=== PATIENT | female | born 1995 | race Caucasian/White ===

== ENCOUNTER 2021-04-24 19:45 | Observation (INO) | payer MEDICAID ==
[~2021-04-24] VITALS: Ht 165.1 cm; Wt 82.1 kg
[2021-04-24] MEDS ORDERED: PNV91TAB8 PO (20:02)
[2021-04-24] MEDS ORDERED: MAGN200T5 PO (20:03)
[2021-04-24] MEDS ORDERED: [UNRECOGNIZED DRUG - CODE] PO (20:13)
[2021-04-24] MEDS ORDERED: FERR-212 PO (20:15)
== END 2021-04-24 21:13 | disposition home or self-care (01) ==
LOC: MLD 19:45
PROVIDERS: ADMIT Obstetrics & Gynecology; ATTEND Obstetrics & Gynecology
DX: O36.8130 Decreased fetal movements, third trimester, not applicable or unspecified (principal); Z3A.39 39 weeks gestation of pregnancy
CPT/HCPCS: G0378

== ENCOUNTER 2021-05-02 12:09 | Inpatient (IN) | payer MEDICAID ==
[~2021-05-02] VITALS: Ht 165.1 cm; Wt 82.1 kg
[~2021-05-02 12:09] MED LIST: FERR-212 PO; MAGN200T5 PO; PNV91TAB8 PO; [UNRECOGNIZED DRUG - CODE] PO
[2021-05-02] MEDS ORDERED: METHYLERGONOVINE 0.2 MG/ML AMP IM PRN (14:10)
[2021-05-02] MEDS ORDERED: PRETAB PO (14:10)
[2021-05-02] MEDS ORDERED: CARBOPROST 250 MCG/ML AMP IM PRN (14:10)
--- NOTE | 2021-05-02 15:02 | NUR ---
PATIENT HAS BEEN SCREENED AND CATEGORIZED LOW NUTRITION RISK. PATIENT WILL BE SEEN WITHIN 7 DAYS OF ADMISSION. 05/09/[address]
[2021-05-02 15:06] LABS: BASOPHILS % (AUTO) 0.2 % (0.0-2.0); EOSINOPHILS # (AUTO) 0.1 K/uL (0-0.4); EOSINOPHILS % (AUTO) 0.7 % (0.0-4.0); HEMATOCRIT 37.3 % (36-48); HEMOGLOBIN 12.5 g/dL (12.0-16.0); LYMPHOCYTES # (AUTO) 1.7 K/uL (2.5-16.5); LYMPHOCYTES % (AUTO) 17.5 % (20.5-51.1); MEAN CORPUSCULAR HEMOGLOBIN 30 pg (27-31); MEAN CORPUSCULAR HGB CONC 34 g/dL (33-37); MEAN CORPUSCULAR VOLUME 88.3 fL (80-94); MONOCYTES # (AUTO) 0.8 K/uL (0.8-1.0); MONOCYTES % (AUTO) 8.1 % (1.7-9.3); NEUTROPHILS # (AUTO) 7.3 K/uL (1.8-7.7); NEUTROPHILS % (AUTO) 73.5 % (42.2-75.2); PLATELET COUNT (AUTO) 209 K/uL (140-450); RED BLOOD CELL COUNT(AUTO) 4.22 MIL/uL (4.20-5.40); RED CELL DISTRIBUTION WIDTH 13.7 % (11.6-13.7); WHITE BLOOD COUNT (AUTO) 9.9 K/uL (4.8-10.8)
[2021-05-02 15:17] LABS: BILIRUBIN,URINE NEGATIVE (NEGATIVE); BLOOD, URINE NEGATIVE (NEGATIVE); COLOR,URINE YELLOW (YELLOW); LEUKOCYTE ESTERASE ,URINE 1+ (NEGATIVE); NITRITE, URINE NEGATIVE (NEGATIVE); PH,URINE 6.5 (5.0-9.0); UGLUCOSE NEGATIVE (NEGATIVE)
[2021-05-02 15:24] LABS: ALBUMIN 2.8 g/dL (3.4-5.0); ANION GAP 16.9 (8-16); CARBON DIOXIDE 22.3 mmol/L (21-32); CREATININE 0.8 mg/dL (0.6-1.3); POTASSIUM 4.2 mmol/L (3.5-5.1); TOTAL BILIRUBIN 0.3 mg/dL (0.0-1.0)
[2021-05-02 15:37] LABS: APPEARANCE,URINE HAZY (CLEAR)
[2021-05-02 15:51] LABS: RBC,URINE 0-5 /HPF (0-5)
[2021-05-02] MEDS ORDERED: MISOPROSTOL 25 MCG TAB VG SCH (16:00)
[2021-05-02] MEDS: LACTATED RINGERS 1,000 ML IV SCH ×2 (16:28→22:12)
[2021-05-02 17:10] VITALS: BP 114/67
[2021-05-03] MEDS ORDERED: NALBUPHINE 10 MG/ML AMP IVP PRN (06:25)
[2021-05-03] MEDS ORDERED: NALBUPHINE 10 MG/ML AMP ONE (06:33)
[2021-05-03] MEDS ORDERED: ROPIVACAINE 0.2%/NS PREMIX 200 ML EPI ONE (12:15)
[2021-05-03] MEDS ORDERED: fentaNYL citrate 0.05 MG/ML VIAL ONE (12:15)
[2021-05-03] MEDS ORDERED: OXYTOCIN 20 UNITS/LR PREMIX 1,000 ML IV ONE (12:49)
[2021-05-03] MEDS ORDERED: LIDOCAINE 1% 500 MG/50 ML VIAL ONE (19:17)
[2021-05-03] MEDS ORDERED: ONDANSETRON 4 MG/2 ML VIAL ONE (22:06)
[2021-05-03] MEDS ORDERED: MORPHINE PRES FREE 10 MG/10 ML AMP IV ONE (23:00)
[2021-05-03] MEDS ORDERED: ceFAZolin 1,000 MG VIAL ONE (23:02)
[2021-05-03] MEDS ORDERED: LIDOCAINE 2% 100 MG/5 ML SYR IVP ONE ×2 (23:14→23:18)
[2021-05-03] MEDS: LACTATED RINGERS 1,000 ML IV SCH (23:18)
[2021-05-03] MEDS ORDERED: LIDOCAINE MPF 2% 100 MG/5 ML VIAL INJ ONE (23:22)
[2021-05-03] MEDS ORDERED: LIDOCAINE 2% 1000 MG/50 ML VIAL INJ ONE ×2 (23:27)
[2021-05-03] MEDS ORDERED: KETAMINE 500 MG/5 ML VIAL ONE (23:30)
[2021-05-04] MEDS ORDERED: OXYTOCIN 20 UNITS in LACTATED RINGERS 1,000 ML IV SCH ×2 (00:20→00:30)
[2021-05-04] MEDS ORDERED: LACTATED RINGERS 1,000 ML IV SCH (00:20)
[2021-05-04] MEDS ORDERED: ONDANSETRON 4 MG/2 ML VIAL IVP PRN ×3 (00:20→00:30)
[2021-05-04] MEDS ORDERED: diphenhydrAMINE 50 MG/ML VIAL IVP PRN ×2 (00:20)
[2021-05-04] MEDS ORDERED: MEPERIDINE 25 MG/ML SYR IVP PRN (00:20)
[2021-05-04] MEDS ORDERED: NALOXONE 0.4 MG/ML VIAL IVP PRN ×3 (00:20)
[2021-05-04] MEDS ORDERED: LIDOCAINE MPF 2% 100 MG/5 ML VIAL INJ ONE ×3 (00:23)
[2021-05-04] MEDS ORDERED: OXYTOCIN 10 UNITS/ML VIAL ONE ×2 (00:23→00:24)
[2021-05-04] MEDS ORDERED: METOCLOPRAMIDE 10 MG/2 ML INJ VIAL ONE (00:24)
[2021-05-04] MEDS ORDERED: DEXAMETHASONE 4 MG/ML VIAL ONE ×3 (00:25)
[2021-05-04] MEDS ORDERED: ONDANSETRON 4 MG/2 ML VIAL ONE (00:25)
[2021-05-04] MEDS ORDERED: oxyCODONE/APAP 5/325 MG 1 TAB TAB PO PRN (00:30)
[2021-05-04] MEDS ORDERED: HYDROmorphone 1 MG/ML AMP IVP PRN (00:30)
[2021-05-04] MEDS ORDERED: PROMETHAZINE 25 MG/ML VIAL IVP PRN (00:30)
[2021-05-04] MEDS ORDERED: METHYLERGONOVINE 0.2 MG/ML AMP IM PRN (00:30)
[2021-05-04] MEDS ORDERED: MEASLES, MUMPS, AND RUBELLA 1 VIAL SQVAC ONE (00:30)
[2021-05-04] MEDS ORDERED: HYDROmorphone PFS 2 MG/ML SYR ONE (00:45)
[2021-05-04] MEDS: HYDROmorphone 1 MG/ML AMP IVP PRN ×4 (00:46→01:17)
[2021-05-04] MEDS: KETOROLAC 30 MG/ML VIAL IM/IVP SCH ×3 (05:42→17:50)
[2021-05-04] MEDS ORDERED: KETOROLAC 30 MG/ML VIAL IM/IVP SCH (06:00)
[2021-05-04 06:33] LABS: HEMATOCRIT 35.6 % (36-48); HEMOGLOBIN 11.7 g/dL (12.0-16.0); MEAN CORPUSCULAR HEMOGLOBIN 29 pg (27-31); MEAN CORPUSCULAR HGB CONC 33 g/dL (33-37); MEAN CORPUSCULAR VOLUME 88.7 fL (80-94); PLATELET COUNT (AUTO) 222 K/uL (140-450); RED BLOOD CELL COUNT(AUTO) 4.02 MIL/uL (4.20-5.40); RED CELL DISTRIBUTION WIDTH 14.1 % (11.6-13.7)
[2021-05-04 08:00] LABS: WHITE BLOOD COUNT (AUTO) 26.1 K/uL (4.8-10.8)
[2021-05-04 08:01] LABS: LYMPHOCYTES % (MANUAL) 3 % (20-46); MONOCYTES % (MANUAL) 2 % (5-12)
[2021-05-04] MEDS ORDERED: OXYTOCIN 20 UNITS/LR PREMIX 1,000 ML IV ONE ×2 (08:23→17:21)
[2021-05-04] MEDS: OXYTOCIN 20 UNITS in LACTATED RINGERS 1,000 ML IV SCH ×2 (09:40→17:27)
[2021-05-04] MEDS ORDERED: CAMERA MC ONE (22:02)
[2021-05-05] MEDS: oxyCODONE/APAP 5/325 MG 1 TAB TAB PO PRN ×2 (02:44→15:50)
[2021-05-05] MEDS: bisacodyL 10 MG SUPP RC SCH (09:22)
[2021-05-05] MEDS ORDERED: HYDROmorphone 1 MG/ML AMP IVP PRN (19:05)
[2021-05-05] MEDS ORDERED: ONDANSETRON 4 MG/2 ML VIAL IVP PRN (19:05)
[2021-05-05] MEDS ORDERED: MEPERIDINE 25 MG/ML SYR IVP PRN (19:05)
[2021-05-05] MEDS ORDERED: CAMERA MC ONE (19:11)
[2021-05-06] MEDS: oxyCODONE/APAP 5/325 MG 1 TAB TAB PO PRN ×2 (00:22→10:35)
[2021-05-06] MEDS ORDERED: CAMERA MC ONE (07:21)
[2021-05-06] MEDS ORDERED: DOCU-299 PO (08:36)
[2021-05-06] MEDS: bisacodyL 10 MG SUPP RC SCH (10:35)
== END 2021-05-06 14:55 | disposition home or self-care (01) | DRG 540 ==
LOC: MFCC 12:09
PROVIDERS: ADMIT Obstetrics & Gynecology; ATTEND Obstetrics & Gynecology
PROC: 10D00Z1 Extraction of Products of Conception, Low, Open Approach (ICD-10-PCS; principal; 2021-05-04)
DX: O62.1 Secondary uterine inertia (principal); O41.03X0 Oligohydramnios, third trimester, not applicable or unspecified; O77.0 Labor and delivery complicated by meconium in amniotic fluid; O66.5 Attempted application of vacuum extractor and forceps; Z3A.40 40 weeks gestation of pregnancy; Z37.0 Single live birth
CPT/HCPCS: 36415; 51702; 59200; 76815; 80053; 81001; 85025; 86592; 86886; 86900; 86901; 87086; J0690; J1100; J1170; J1885; J2001; J2175; J2210; J2270; J2300; J2405; J2590; J2765; J2795; J3010; J3490; J7120; Q0092